=== PATIENT | female | born 2005 | race Two or more races ===

== ENCOUNTER 2025-02-14 14:09 | Inpatient (IN) | payer OTHER ==
[~2025-02-14] VITALS: Ht 157.5 cm; Wt 70.3 kg
[2025-02-14] MEDS ORDERED: FAMO40TA7 PO (14:21)
[2025-02-14] MEDS ORDERED: IBUP-2314 PO (14:21)
[2025-02-14] MEDS ORDERED: CEPH500C2 PO (14:21)
[2025-02-14 14:37] LABS: BASOPHILS % (AUTO) 0.6 % (0.0-2.0); EOSINOPHILS # (AUTO) 0.2 K/uL (0.0-0.7); EOSINOPHILS % (AUTO) 3.8 % (0.0-7.0); HEMATOCRIT 35.5 % (31.2-41.9); HEMOGLOBIN 11.6 g/dL (10.9-14.3); LYMPHOCYTES # (AUTO) 1.9 K/uL (0.8-4.8); LYMPHOCYTES % (AUTO) 31.5 % (20.5-51.5); MEAN CORPUSCULAR HGB CONC 33 g/dL (32.3-35.6); MEAN CORPUSCULAR VOLUME 79.5 fL (75.5-95.3); MONOCYTES # (AUTO) 0.6 K/uL (0.1-1.30); MONOCYTES % (AUTO) 9.2 % (0.0-11.0); NEUTROPHILS # (AUTO) 3.4 K/uL (1.8-8.9); NEUTROPHILS % (AUTO) 54.9 % (38.5-71.5); PLATELET COUNT (AUTO) 251 K/uL (179-408); RED BLOOD CELL COUNT(AUTO) 4.47 MIL/uL (3.63-4.92); RED CELL DISTRIBUTION WIDTH 14.4 % (12.3-17.7); WHITE BLOOD COUNT (AUTO) 6.2 K/uL (3.8-11.8)
[2025-02-14 14:39] LABS: DIFFERENTIAL COMMENT 1
[2025-02-14 14:43] LABS: CALCIUM 9.2 mg/dL (8.5-10.1); CARBON DIOXIDE 25 mmol/L (21-32); CHLORIDE 109 mmol/L (98-107); CREATININE 0.7 mg/dL (0.6-1.3); GLUCOSE 89 mg/dL (74-106); POTASSIUM 3.8 mmol/L (3.5-5.1); SODIUM SERUM 144 mmol/L (136-145); UREA NITROGEN, BLOOD 9 mg/dL (7-18)
[2025-02-14 14:46] LABS: *BILIRUBIN,URIN 3+ (NEGATIVE); *BLOOD, URINE NEGATIVE (NEGATIVE); *CLARITY,URINE CLEAR (CLEAR); *COLOR,URINE DARK YELLOW (YELLOW); *KETONES,URINE NEGATIVE (NEGATIVE); *PROTEIN,URINE NEGATIVE (NEGATIVE); LEUKOCYTE ESTERASE ,URINE 1+ (NEGATIVE); NITRITE, URINE NEGATIVE (NEGATIVE); UGLUCOSE NEGATIVE (NEGATIVE)
[2025-02-14 14:49] LABS: ALANINE AMINOTRANSFERASE 356 U/L (14-59); ALBUMIN 3.4 g/dL (3.4-5.0); ALKALINE PHOSPHATASE 242 U/L (50-136); ASPARTATE AMINOTRANSFERASE 273 U/L (15-37); BILIRUBIN,DIRECT 2.5 mg/dL (0.0-0.2); BILIRUBIN,TOTAL 2.9 mg/dL (0.2-1.0); LIPASE 55 U/L (16-77); TOTAL PROTEIN, SERUM 7.1 g/dL (6.4-8.2)
[2025-02-14 14:58] LABS: BACTERIA,URINE MODERATE /HPF (NONE SEEN); RBC,URINE 0-3 /HPF (0-3); SQUAMOUS EPITHELIAL CELL,UR MODERATE /HPF (NONE SEEN); WBC,URINE 20-50 /HPF (0-3)
[2025-02-14] MEDS ORDERED: CEFTRIAXONE /D5W 50ML IVPB **ER PYXIS IV ONE (15:14)
[2025-02-14 15:17] LABS: PREGNANCY TEST SERUM QUAN < 1 miul/L (0-6)
[2025-02-14] MEDS: CEFTRIAXONE 1 G in IV DEXTROSE 5% 50 ML IV ONE (15:18)
[2025-02-14] MEDS ORDERED: IBUPROFEN 600 MG TABLET ONE (16:18)
[2025-02-14] MEDS: IBUPROFEN 600 MG TABLET PO ONE (16:26)
[2025-02-14 18:54] VITALS: BP 114/81; TEMP 98
[2025-02-14] MEDS ORDERED: REMEDY ESSENTIAL ZINC PASTE 113 GM TP PRN (19:15)
[2025-02-14] MEDS ORDERED: MAGNESIUM HYDROXIDE 30 ML LIQUID UDC PO PRN (19:15)
[2025-02-14] MEDS ORDERED: ZOLPIDEM 5 MG TABLET PO PRN (19:15)
[2025-02-14 19:22] VITALS: BP 132/77; TEMP 98; O2SAT 98
[2025-02-14] MEDS ORDERED: MORPHINE SULFATE 2 MG/1 ML DISP.SYRIN IV PRN ×2 (19:30→19:45)
[2025-02-14] MEDS: IV D5 1/2 NS 1000 ML 1,000 ML IV PRN (20:16)
[2025-02-15 05:48] VITALS: BP 102/48; TEMP 97.6; O2SAT 99
[2025-02-15 06:53] LABS: BASOPHILS % (AUTO) 0.6 % (0.0-2.0); EOSINOPHILS # (AUTO) 0.3 K/uL (0.0-0.7); EOSINOPHILS % (AUTO) 5.2 % (0.0-7.0); HEMATOCRIT 35.6 % (31.2-41.9); HEMOGLOBIN 11.8 g/dL (10.9-14.3); LYMPHOCYTES # (AUTO) 2.1 K/uL (0.8-4.8); LYMPHOCYTES % (AUTO) 36.7 % (20.5-51.5); MEAN CORPUSCULAR HEMOGLOBIN 26.4 uug (24.7-32.8); MEAN CORPUSCULAR HGB CONC 33 g/dL (32.3-35.6); MEAN CORPUSCULAR VOLUME 79.5 fL (75.5-95.3); MONOCYTES # (AUTO) 0.5 K/uL (0.1-1.30); MONOCYTES % (AUTO) 9.2 % (0.0-11.0); NEUTROPHILS # (AUTO) 2.8 K/uL (1.8-8.9); NEUTROPHILS % (AUTO) 48.3 % (38.5-71.5); PLATELET COUNT (AUTO) 251 K/uL (179-408); RED BLOOD CELL COUNT(AUTO) 4.47 MIL/uL (3.63-4.92); RED CELL DISTRIBUTION WIDTH 14.6 % (12.3-17.7); WHITE BLOOD COUNT (AUTO) 5.7 K/uL (3.8-11.8)
[2025-02-15 07:04] LABS: BILIRUBIN,DIRECT 2.3 mg/dL (0.0-0.2); BILIRUBIN,TOTAL 2.7 mg/dL (0.2-1.0); CALCIUM 8.6 mg/dL (8.5-10.1); CREATININE 0.7 mg/dL (0.6-1.3); DIFFERENTIAL COMMENT 1; MAGNESIUM 1.9 mg/dL (1.8-2.4); PHOSPHOROUS 4.4 mg/dL (2.5-4.9); POTASSIUM 3.3 mmol/L (3.5-5.1); TOTAL PROTEIN, SERUM 6.4 g/dL (6.4-8.2)
[2025-02-15] MEDS: PANTOPRAZOLE SODIUM 40 MG VIAL IV SCH (08:24)
[2025-02-15] MEDS ORDERED: FAMO-132 PO (09:12)
[2025-02-15] MEDS ORDERED: IBUP-1955 PO (09:12)
[2025-02-15] MEDS ORDERED: POTASSIUM CHLORIDE 50 ML IV SCH (09:30)
[2025-02-15 12:00] VITALS: BP 125/73; TEMP 98.2; O2SAT 98
[2025-02-15] MEDS: POTASSIUM CHLORIDE 50 ML IV SCH (12:35)
[2025-02-15] MEDS: CEFTRIAXONE 1 G in IV DEXTROSE 5% 50 ML IV SCH (15:54)
[2025-02-15 23:45] VITALS: BP 122/77; TEMP 98; O2SAT 100
[2025-02-16 06:31] VITALS: BP 107/70; TEMP 97.7; O2SAT 96
[2025-02-16 07:11] LABS: BASOPHILS % (AUTO) 0.5 % (0.0-2.0); EOSINOPHILS # (AUTO) 0.2 K/uL (0.0-0.7); EOSINOPHILS % (AUTO) 4.4 % (0.0-7.0); HEMATOCRIT 37.3 % (31.2-41.9); HEMOGLOBIN 12.1 g/dL (10.9-14.3); LYMPHOCYTES # (AUTO) 1.6 K/uL (0.8-4.8); LYMPHOCYTES % (AUTO) 29.8 % (20.5-51.5); MEAN CORPUSCULAR HEMOGLOBIN 26.6 uug (24.7-32.8); MEAN CORPUSCULAR HGB CONC 33 g/dL (32.3-35.6); MEAN CORPUSCULAR VOLUME 81.7 fL (75.5-95.3); MONOCYTES # (AUTO) 0.6 K/uL (0.1-1.30); MONOCYTES % (AUTO) 10.4 % (0.0-11.0); NEUTROPHILS # (AUTO) 2.9 K/uL (1.8-8.9); NEUTROPHILS % (AUTO) 54.9 % (38.5-71.5); PLATELET COUNT (AUTO) 258 K/uL (179-408); RED BLOOD CELL COUNT(AUTO) 4.57 MIL/uL (3.63-4.92); RED CELL DISTRIBUTION WIDTH 14.9 % (12.3-17.7); WHITE BLOOD COUNT (AUTO) 5.4 K/uL (3.8-11.8)
[2025-02-16 07:28] LABS: DIFFERENTIAL COMMENT 1
[2025-02-16 07:36] LABS: CALCIUM 8.7 mg/dL (8.5-10.1); CREATININE 0.7 mg/dL (0.6-1.3); MAGNESIUM 1.9 mg/dL (1.8-2.4); PHOSPHOROUS 4.4 mg/dL (2.5-4.9); POTASSIUM 3.4 mmol/L (3.5-5.1)
[2025-02-16 08:00] VITALS: BP 120/68; TEMP 98; O2SAT 97
[2025-02-16] MEDS: POTASSIUM CHLORIDE 50 ML IV SCH (10:36)
[2025-02-16 12:00] VITALS: BP 117/67; TEMP 98.1; O2SAT 97
[2025-02-16] MEDS ORDERED: FENTANYL CITRATE 250 MCG/5 ML AMPUL ONE (13:50)
[2025-02-16] MEDS ORDERED: ROCURONIUM BROMIDE 50 MG/5 ML VIAL ONE (13:50)
[2025-02-16] MEDS ORDERED: PIPERACILLIN SODIUM/TAZOBACTAM 3.375 G in IV DEXTROSE 5% 50 ML IV SCH (14:00)
[2025-02-16] MEDS ORDERED: PROPOFOL 200 MG/20 ML BOTTLE ONE (14:00)
[2025-02-16] MEDS ORDERED: BUPIVACAINE/EPI PF 0.5% 10 ML VIAL ONE (14:00)
[2025-02-16] MEDS ORDERED: LIDOCAINE HCL 1% 20 ML VIAL ONE (14:00)
[2025-02-16] MEDS: PIPERACILLIN SODIUM/TAZOBACTAM 3.375 G in IV DEXTROSE 5% 100 ML IV SCH (14:03)
[2025-02-16] MEDS ORDERED: KETOROLAC TROMETHAMINE 15 MG INJ IVP PRN (15:45)
[2025-02-16] MEDS ORDERED: MORPHINE SULFATE 2 MG/1 ML DISP.SYRIN IV PRN (16:45)
[2025-02-16] MEDS ORDERED: KETOROLAC TROMETHAMINE 30 MG INJ ONE (17:02)
[2025-02-16] MEDS ORDERED: ONDANSETRON 4 MG/2 ML VIAL ONE (17:10)
[2025-02-16] MEDS: ONDANSETRON 4 MG/2 ML VIAL IV PRN (17:10)
[2025-02-16] MEDS: KETOROLAC TROMETHAMINE 30 MG INJ IVP PRN (17:18)
[2025-02-16 18:17] VITALS: BP 125/70; TEMP 97.8; O2SAT 96
[2025-02-16 19:00] VITALS: BP 132/89; TEMP 98.5; O2SAT 97
[2025-02-16] MEDS: HYDROCODONE/APAP 5-325MG TABLET PO PRN (20:03)
[2025-02-17 06:00] VITALS: BP 120/71; TEMP 98.5; O2SAT 96
[2025-02-17 07:01] LABS: BASOPHILS % (AUTO) 0.2 % (0.0-2.0); EOSINOPHILS % (AUTO) 0.1 % (0.0-7.0); HEMATOCRIT 37.8 % (31.2-41.9); HEMOGLOBIN 12.3 g/dL (10.9-14.3); LYMPHOCYTES # (AUTO) 1.4 K/uL (0.8-4.8); LYMPHOCYTES % (AUTO) 16.4 % (20.5-51.5); MEAN CORPUSCULAR HEMOGLOBIN 26.5 uug (24.7-32.8); MEAN CORPUSCULAR HGB CONC 33 g/dL (32.3-35.6); MEAN CORPUSCULAR VOLUME 81.7 fL (75.5-95.3); MONOCYTES # (AUTO) 0.8 K/uL (0.1-1.30); MONOCYTES % (AUTO) 8.9 % (0.0-11.0); NEUTROPHILS # (AUTO) 6.3 K/uL (1.8-8.9); NEUTROPHILS % (AUTO) 74.4 % (38.5-71.5); PLATELET COUNT (AUTO) 265 K/uL (179-408); RED BLOOD CELL COUNT(AUTO) 4.62 MIL/uL (3.63-4.92); RED CELL DISTRIBUTION WIDTH 15.2 % (12.3-17.7); WHITE BLOOD COUNT (AUTO) 8.5 K/uL (3.8-11.8)
[2025-02-17 07:13] LABS: DIFFERENTIAL COMMENT 1
[2025-02-17 07:24] LABS: ALBUMIN 2.8 g/dL (3.4-5.0); BILIRUBIN,TOTAL 4.4 mg/dL (0.2-1.0); CALCIUM 8.6 mg/dL (8.5-10.1); CREATININE 0.8 mg/dL (0.6-1.3); MAGNESIUM 1.7 mg/dL (1.8-2.4); PHOSPHOROUS 5.3 mg/dL (2.5-4.9); POTASSIUM 3.4 mmol/L (3.5-5.1); TOTAL PROTEIN, SERUM 6.8 g/dL (6.4-8.2)
[2025-02-17 11:24] VITALS: BP 124/75; TEMP 98.4; O2SAT 97
[2025-02-17] MEDS: MAGNESIUM OXIDE 400 MG TABLET PO ONE (12:17)
[2025-02-17] MEDS: POTASSIUM CHLORIDE 20 MEQ TAB.PRT.SR PO ONE (12:17)
[2025-02-17 15:30] VITALS: BP 119/72; TEMP 97.8; O2SAT 100
[2025-02-17 19:00] VITALS: BP 116/68; TEMP 98.3; O2SAT 97
[2025-02-18 04:00] VITALS: BP 113/65; TEMP 98.1; O2SAT 95
[2025-02-18] MEDS: PANTOPRAZOLE SODIUM 40 MG TABLET.DR PO SCH (06:08)
[2025-02-18 06:43] LABS: BASOPHILS % (AUTO) 0.2 % (0.0-2.0); EOSINOPHILS # (AUTO) 0.2 K/uL (0.0-0.7); EOSINOPHILS % (AUTO) 2.4 % (0.0-7.0); HEMATOCRIT 37.6 % (31.2-41.9); HEMOGLOBIN 12.2 g/dL (10.9-14.3); LYMPHOCYTES # (AUTO) 1.9 K/uL (0.8-4.8); LYMPHOCYTES % (AUTO) 29.4 % (20.5-51.5); MEAN CORPUSCULAR HEMOGLOBIN 26.6 uug (24.7-32.8); MEAN CORPUSCULAR HGB CONC 33 g/dL (32.3-35.6); MEAN CORPUSCULAR VOLUME 81.8 fL (75.5-95.3); MONOCYTES # (AUTO) 0.7 K/uL (0.1-1.30); MONOCYTES % (AUTO) 11.2 % (0.0-11.0); NEUTROPHILS # (AUTO) 3.6 K/uL (1.8-8.9); NEUTROPHILS % (AUTO) 56.8 % (38.5-71.5); PLATELET COUNT (AUTO) 240 K/uL (179-408); RED CELL DISTRIBUTION WIDTH 15.8 % (12.3-17.7); WHITE BLOOD COUNT (AUTO) 6.4 K/uL (3.8-11.8)
[2025-02-18 06:52] LABS: DIFFERENTIAL COMMENT 1
[2025-02-18 06:56] LABS: ALBUMIN 2.8 g/dL (3.4-5.0); BILIRUBIN,DIRECT 4.6 mg/dL (0.0-0.2); BILIRUBIN,TOTAL 5.4 mg/dL (0.2-1.0); CREATININE 0.9 mg/dL (0.6-1.3); MAGNESIUM 1.9 mg/dL (1.8-2.4); PHOSPHOROUS 3.7 mg/dL (2.5-4.9); POTASSIUM 3.3 mmol/L (3.5-5.1); TOTAL PROTEIN, SERUM 6.8 g/dL (6.4-8.2)
[2025-02-18 08:00] VITALS: BP 118/69; TEMP 98.5; O2SAT 95
[2025-02-18 11:00] VITALS: BP 125/76; TEMP 98.2; O2SAT 96
[2025-02-18] MEDS: POTASSIUM CHLORIDE 20 MEQ TAB.PRT.SR PO ONE (13:58)
[2025-02-18 16:10] VITALS: BP 125/80; TEMP 98.1; O2SAT 98
[2025-02-18] MEDS: ACETAMINOPHEN 325 MG TABLET PO PRN (17:01)
[2025-02-18 19:10] VITALS: BP 125/76; TEMP 98.1; O2SAT 96
[2025-02-19 04:00] VITALS: BP 126/76; TEMP 98; O2SAT 95
[2025-02-19 07:01] LABS: BASOPHILS % (AUTO) 0.2 % (0.0-2.0); EOSINOPHILS # (AUTO) 0.2 K/uL (0.0-0.7); EOSINOPHILS % (AUTO) 2.6 % (0.0-7.0); HEMATOCRIT 36.1 % (31.2-41.9); HEMOGLOBIN 11.8 g/dL (10.9-14.3); LYMPHOCYTES # (AUTO) 1.6 K/uL (0.8-4.8); LYMPHOCYTES % (AUTO) 20.8 % (20.5-51.5); MEAN CORPUSCULAR HEMOGLOBIN 26.6 uug (24.7-32.8); MEAN CORPUSCULAR HGB CONC 33 g/dL (32.3-35.6); MEAN CORPUSCULAR VOLUME 81.2 fL (75.5-95.3); MONOCYTES # (AUTO) 0.7 K/uL (0.1-1.30); MONOCYTES % (AUTO) 9.9 % (0.0-11.0); NEUTROPHILS % (AUTO) 66.5 % (38.5-71.5); PLATELET COUNT (AUTO) 233 K/uL (179-408); RED BLOOD CELL COUNT(AUTO) 4.44 MIL/uL (3.63-4.92); RED CELL DISTRIBUTION WIDTH 15.8 % (12.3-17.7); WHITE BLOOD COUNT (AUTO) 7.5 K/uL (3.8-11.8)
[2025-02-19 07:02] LABS: DIFFERENTIAL COMMENT 1
[2025-02-19 07:24] LABS: BILIRUBIN,DIRECT 2.4 mg/dL (0.0-0.2); BILIRUBIN,TOTAL 3.2 mg/dL (0.2-1.0); CALCIUM 9.2 mg/dL (8.5-10.1); CREATININE 0.7 mg/dL (0.6-1.3); PHOSPHOROUS 3.9 mg/dL (2.5-4.9)
[2025-02-19 07:25] LABS: ALBUMIN 2.7 g/dL (3.4-5.0); MAGNESIUM 1.9 mg/dL (1.8-2.4); POTASSIUM 3.6 mmol/L (3.5-5.1); TOTAL PROTEIN, SERUM 6.7 g/dL (6.4-8.2)
[2025-02-19 11:19] VITALS: BP 125/76; TEMP 97.9; O2SAT 97
[2025-02-19 13:15] LABS: BILIRUBIN,DIRECT 1.7 mg/dL (0.0-0.2); BILIRUBIN,TOTAL 2.6 mg/dL (0.2-1.0); TOTAL PROTEIN, SERUM 6.8 g/dL (6.4-8.2)
[2025-02-19 15:30] VITALS: BP 120/65; TEMP 97.8; O2SAT 98
[2025-02-19] MEDS ORDERED: FAMO10TA41 PO (15:58)
[2025-02-19] MEDS ORDERED: CEPH500C2 PO (15:58)
[2025-02-19] MEDS ORDERED: ACET-2154 PO (15:58)
[2025-02-19] MEDS ORDERED: ACID1TAB4 PO (15:58)
== END 2025-02-19 17:10 | disposition home or self-care (01) | DRG 548 ==
LOC: ER 14:09 → MEDSURG3 18:17
PROVIDERS: ADMIT Student in an Organized Health Care Education/Training Program; ATTEND Student in an Organized Health Care Education/Training Program
PROC: 0FT44ZZ Resection of Gallbladder, Percutaneous Endoscopic Approach (ICD-10-PCS; principal; 2025-02-16 14:30)
PROC: 05HC33Z Insertion of Infusion Device into Left Basilic Vein, Percutaneous Approach (ICD-10-PCS; 2025-02-18)
DX: O99.63 Diseases of the digestive system complicating the puerperium (principal); E44.0 Moderate protein-calorie malnutrition; K80.46 Calculus of bile duct with acute and chronic cholecystitis without obstruction; N39.0 Urinary tract infection, site not specified; E87.6 Hypokalemia; K21.9 Gastro-esophageal reflux disease without esophagitis; O86.20 Urinary tract infection following delivery, unspecified; B96.89 Other specified bacterial agents as the cause of diseases classified elsewhere
CPT/HCPCS: 36415; 74181; 78445; 83690; 83735; 84100; 85025; 87086; A4606; A4663; A9537; G0378; J0696; J1100; J1885; J2405; J2470; J2543; J3010; J3480; J3490